=== PATIENT | female | born 1960 | race Caucasian/White ===

== ENCOUNTER 2023-10-18 14:13 | Outpatient (REF) | payer MEDICARE, SELFPAY ==
--- NOTE | ~2023-10-18 | MR_ITS ---
EXAMINATION: MR BRAIN WITHOUT CONTRAST CLINICAL INFORMATION: 63-year-old with cervical dystonia, spastic torticollis. Self-reported head shakes/tremors. COMPARISON: None available. TECHNIQUE: MRI of the brain was obtained using routine sequences without contrast. FINDINGS: BRAIN VOLUME: Within normal limits within the limitations of qualitative assessment. 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 BRAIN AND MENINGES: DWI sequence demonstrates no restricted diffusion to suggest acute or subacute cerebral ischemia. Mild, scattered very small foci of FLAIR/T2 signal hyperintensity in the subcortical white matter of both cerebral hemispheres in the frontal and parietal lobes but with a predominantly frontal lobe distribution, which are nonspecific findings. Otherwise the brain parenchyma is normal in morphology and signal intensity. Gradient refocused imaging demonstrates no abnormal susceptibility-weighted signal loss to suggest hemorrhage, hemosiderin staining or abnormal mineralization. No extra-axial fluid collection, space-occupying process or mass effect is identified. The allen-white matter differentiation is maintained. VENTRICLES AND SUBARACHNOID SPACES: The ventricular system and subarachnoid spaces are within normal range; there is no hydrocephalus. ORBITAL STRUCTURES: The visualized orbital structures are grossly unremarkable within the limitations of the study. VASCULAR: Signal voids are noted in the visualized major intracranial vessels. OSSEOUS STRUCTURES, SINUSES/MASTOIDS, EXTRACRANIAL SOFT TISSUES: Osseous marrow signal intensity is within normal limits. There is pansinus mucosal inflammatory change, most prominently seen in the maxillary and ethmoid sinuses bilaterally. Correlate clinically. MR/MR head/brain wo con IMPRESSION: 1. Scattered nonspecific subcortical white matter T2 hyperintensities in the cerebral hemispheres bilaterally. 2. No acute intracranial process. No evidence for infarction, hemorrhage, extra-axial fluid collection, space-occupying process, mass effect or hydrocephalus. 3. Pansinus mucosal inflammatory changes. 4. 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
== END 2023-10-18 14:14 | disposition home or self-care (01) ==
LOC: HO.MRI 14:13
PROVIDERS: PCP Family Medicine; Visit Provider Psychiatry & Neurology Neurology
DX: G24.3 Spasmodic torticollis (principal)
CPT/HCPCS: 70551

== ENCOUNTER 2025-02-12 10:16 | Outpatient (AMB) | payer MEDICARE, SELFPAY ==
--- NOTE | 2025-02-12 10:31 | A.OFFPC_ITS ---
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 Need Rosuvastatin refilled. 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: No Allergies No Known Allergies Allergy (Verified 02/12/25 10:36) Medication List - Last Reconciled 02/12/25 by Ivonne Middleton PA-C ascorbate calcium (vitamin C) 500 mg PO DAILY cholecalciferol (vitamin D3) 25 mcg PO DAILY [fish oil 1200 PO] [glucasamine chondroitin PO] rosuvastatin 10 mg PO DAILY [tumeric curcumin 1500 PO] zinc gluconate (Zinc-50) PO Tobacco use date assessed: 02/12/25 Fall risk assessment: No Falls in past year Last assessed Fall Risk: 02/12/25 Dental Screening Dental Screen Date: 02/12/25 Did you have a dental visit in the last 12 months?: Yes Did you have a dental problem in the last 6 months where you did not have access to dental care?: No Was dental information given to patient?: Patient has dentist 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 She is transferring from [facility]. She has a significant past medical history of Bilateral CTS, PMR, former smoker, and hyperlipidemia. She states she has had a cough since 12/29. She states it started with cold like sx. She states that she is overall better in the cough is becoming less noticeable. It feels like at times that she has not irritation and has to keep coughing. She states that it went around her whole office. She denies any wheezing or shortness on breath. No fever, chills, sinus pain or pressure. No difficulty swallowing. No history of asthma or COPD. She is a former smoker. MSK: has bilateral cts, had emgs and cortisone injections. She states that after cortisone injections she developed PMR. She uses wrist braces and ibuprofen. 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 quit in 2013, 1 ppd x 51 years. no fam hx of lung ca PFSH Surgical History (Updated 02/12/25 @ 11:13 by Ivonne Middleton PA-C) H/O tubal ligation History of hip surgery Family History (Updated 02/12/25 @ 10:54 by Samantha Mccray CMA) Mother Bladder cancer Hyperlipidemia HTN (hypertension) Diabetes Father CAD (coronary artery disease) HTN (hypertension) Hyperlipidemia Prostate cancer Paternal Grandmother Cancer of ovary Sister Thyroid disease Schizophrenia Asthma Other FH: mental illness Social History (System 11/05/20 @ 13:44 by Shira Eid) Housing: House Alcohol intake: current Patient Tobacco Use Status: Former Tobacco user e-Cigarette/Vaping Use: Never Used Second Hand Smoke Exposure: No service: No Current occupational status: employed 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 1. Little interest or pleasure in doing things: not at all 2. Feeling down, depressed, or hopeless: not at all 3. Trouble falling or staying asleep, or sleeping too much: not at all 4. Feeling tired or having little energy: not at all 5. Poor appetite or overeating: not at all 6. Feeling bad about yourself - or that you are a failure or have let yourself or your family down: not at all 7. Trouble concentrating on things, such as reading the newspaper or watching television: not at all 8. Moving or speaking so slowly that other people could have noticed. Or the opposite - being so fidgety or restless that you have been moving around a lot more than usual: not at all 9. Thoughts that you would be better off or of hurting yourself in some way: not at all Total score: 0 Depression Screening Interpretation: Negative Depression Screening Done: Yes 24213 - PHQ-9 Billing: Yes Source: Developed by Drs. Gerson Treviño, Josie Barroso, Jorge Yi and colleagues, with an educational castillo from [employer]. Thrive Questionnaire Date Thrive assessed: 02/09/25 I am a: Patient What is your living situation today?: I have a steady place to live Within the past 12 months, did the food you bought not last and you didn't have the money to get more?: Never true Within the past 12 months, did you worry whether your food would run out before you got money to buy more?: Never true Do you have trouble paying for medicines?: No Do you have trouble getting transportation to medical appointments?: No Do you have trouble paying your heating and electricity bill?: No Do you have trouble taking care of your child, family member or friend?: No Do you have trouble with day-to-day activities such as bathing, preparing meals, shopping, managing finances, etc.?: No Are you currently unemployed and looking for a job?: No Are you interested in more education?: No Please select the resources that you would like help with: None Currently or been in a relationship where the following occur: No concerns reported THRIVE Score: 0 AUDIT C Alcohol Use Questionnaire (AUDIT-C) 1. How often do you have a drink containing alcohol?: 2-3 times a week 2. How many drinks containing alcohol do you have on a typical day when you are drinking?: 1 or 2 3. How often do you have six or more drinks on one occasion?: Never Total Score: 3 MARLEY-7 AMB Questionnaire MARLEY-7 Date MARLEY - 7 assessed: 02/12/25 Feeling nervous, anxious, or on edge: 0 = Not at all Not being able to stop or control worryin = Not at all Worrying too much about different things: 0 = Not at all Trouble relaxin = Not at all Being so restless that it is hard to sit still: 0 = Not at all Becoming easily annoyed or irritable: 0 = Not at all Feeling afraid as if something awful might happen: 0 = Not at all Total MARLEY-7 score (0-4 normal; 5-9 mild; 10-14 moderate; 15-21 severe): 0 Source: Developed by Drs. Gerson Treviño, Josie Barroso, Jorge Yi and colleagues, with an educational castillo from [employer]. MARLEY-7 Assessment Billing MARLEY-7 Assessment Tool: MARLEY-7 Assessment 51292 Physical exam (Primary Care) Vital Signs: Last Vital Signs Temp 98.6 F 02/12/25 10:39 Pulse 73 02/12/25 10:39 Resp 12 02/12/25 10:39 BP 126/88 02/12/25 10:39 Pulse Ox 97 02/12/25 10:39 Oxygen Delivery Method Room Air 02/12/25 10:39 BMI result Body Mass Index 26.1 Tobacco/Smoking Status: Tobacco use Status Tobacco use date assessed 02/12/25 02/12/25 10:54 Patient Tobacco Use Status Former Tobacco user (stopped 02/12/25 10:54 2012 ) e-Cigarette/Vaping Use Never Used 02/12/25 10:54 PHQ-9: PHQ-9 Score PHQ-9: Total score 0 02/12/25 10:54 Depression Screening Interpretation: Negative Thrive Assessment: Date of Thrive Assessment Date Thrive assessed 02/09/25 02/12/25 10:31 Currently or been in a relationship where the following occur: No concerns reported Const Orientation/consciousness: patient oriented x3 HENMT Ears: hearing grossly normal bilaterally Neck Thyroid: Thyroid normal Lymphatic: no lymphadenopathy noted Resp Auscultation: clear to auscultation bilaterally Cardio Rate: regular rate Rhythm: regular rhythm Heart sounds: S1 normal heart sound present and S2 normal heart sound present GI Inspection: Yes normal to inspection Palpation (GI): Soft to palpation and Other GI palpation findings present (nontender, no cva tenderness) Auscultation: normoactive bowel sounds Rectal Exam - Female: deferred Skin General skin exam: no rashes or lesions noted Neuro General: patient oriented x3, gait normal and no focal motor deficits Coding Level of Care Code New Pt Level 3 (87527) Complex EM visit Add On G2211 Diagnoses Dyslipidemia E78.5 Former smoker Z87.891 Bilateral carpal tunnel syndrome G56.03 Additional Codes MARLEY-7 Assessment Billing - MARLEY-7 Assessment Tool: MARLEY-7 Assessment 63872 ([id number]) PHQ-9 - 91852 - PHQ-9 Billing: Yes ([id number]) Assessment & Plan Assessment & Plan (1) Dyslipidemia: Code(s): E78.5 - Hyperlipidemia, unspecified Category: Medical Plan: Refilled medication today. Labs ordered We will follow up pending test results (2) Former smoker: Code(s): Z87.891 - Personal history of nicotine dependence Category: Social Hx Plan: Currently following at [facility]. We will let me know if she wants to switch (3) Bilateral carpal tunnel syndrome: Code(s): G56.03 - Carpal tunnel syndrome, bilateral upper limbs Category: Medical Plan: Stable with braces and ibuprofen as needed. Orders: Orders MM diagnostic mammo BI Today Z12.39 - Encounter for other screening for malignant neoplasm of breast XR DEXA axial skeleton Today N95.9 - Unspecified menopausal and perimenopausal disorder, Z87.891 - Personal history of nicotine dependence Comprehensive [place]. Panel Fast Today E78.5 - Hyperlipidemia, unspecified, Z87.891 - Personal history of nicotine dependence Complete Blood Count Auto Diff Today E78.5 - Hyperlipidemia, unspecified, Z87.891 - Personal history of nicotine dependence UA CC w/rflx Micro + Cult Today E78.5 - Hyperlipidemia, unspecified, Z13.220 - Encounter for screening for lipoid disorders, Z87.891 - Personal history of nicotine dependence Lipid Panel Today E78.5 - Hyperlipidemia, unspecified, Z87.891 - Personal history of nicotine dependence TSH reflex Free T4 Today E78.5 - Hyperlipidemia, unspecified, Z87.891 - Personal history of nicotine dependence Microalbumin, Random (w Creat) Today E78.5 - Hyperlipidemia, unspecified, Z87.891 - Personal history of nicotine dependence Medications: New rosuvastatin 10 mg PO DAILY 90 tabs 3RF
[2025-02-12 10:39] VITALS: BP 126/88; PULSE 73; RESP 12; TEMP 37; O2SAT 97; BMI 26.1
== END 2025-02-12 11:27 | disposition home or self-care (01) ==
LOC: HO.HMCFM 10:17
PROVIDERS: PCP Physician Assistant; Visit Provider Physician Assistant
DX: E78.5 Hyperlipidemia, unspecified (principal); Z87.891 Personal history of nicotine dependence; G56.03 Carpal tunnel syndrome, bilateral upper limbs

== ENCOUNTER → 2025-02-12 10:16 | Outpatient (BNVA) | payer MEDICARE, SELFPAY | PROVIDERS: PCP Physician Assistant; Visit Provider Physician Assistant | DX: E78.5 Hyperlipidemia, unspecified (principal); G56.03 Carpal tunnel syndrome, bilateral upper limbs; Z87.891 Personal history of nicotine dependence | CPT/HCPCS: 96127; 99202 ==

== ENCOUNTER 2025-04-30 08:31 | Outpatient (REF) | payer MEDICARE, SELFPAY ==
--- NOTE | ~2025-04-30 | MM_ITS ---
EXAMINATION: DXA BONE DENSITY AXIAL HISTORY: N95.9 - Unspecified menopausal and perimenopausal disorder TECHNIQUE: [employer] Dual energy absorptiometry (DEXA) of the lumbar spine, total left hip, and femoral neck was performed. COMPARISON: There are no prior studies for comparison. FINDINGS: The bone mineral density of the lumbar spine is 1.430 g/cm2, corresponding to a T-score of 2.1, and a Z-score of 3.7. This is indicative of normal bone mineral density. The bone mineral density of the left total hip is 1.118 g/cm2, corresponding to a T-score of 0.9, and a Z-score of 2.2. This is indicative of normal bone mineral density. The bone mineral density of the left femoral neck is 0.911 g/cm2, corresponding to a T-score of -0.9, and a Z-score of 0.6. This is indicative of normal bone mineral density. FRACTURE RISK: The FRAX index suggests a risk of major osteoporotic fracture of 12.3%, and of hip fracture 1.1%. MM/XR DEXA axial skeleton IMPRESSION: Based on bone mineral density, and according to World Health Organization (WHO) criteria, the diagnosis is consistent with normal bone mineral density. Statistically, 68% of repeat scans fall within 1 SD (+/- 0.010 g/cm2 for AP spine L1-L4) and 1 SD (+/- 0.012 g/cm2 for femur total) FRAX is a trademark of the [employer] [place] [facility] Met[employer], a World Health Organization (WHO) Collaborating Center. Electronically signed by: Gerson Brooks MD 04/30/2025 09:37 AM EDT
== END 2025-04-30 08:32 | disposition home or self-care (01) ==
LOC: HO.MAMMO 08:31
PROVIDERS: PCP Physician Assistant; Visit Provider Physician Assistant
DX: Z13.820 Encounter for screening for osteoporosis (principal); Z78.0 Asymptomatic menopausal state; Z87.891 Personal history of nicotine dependence
CPT/HCPCS: 77080

== ENCOUNTER → 2025-04-30 08:45 | Outpatient (BNV) | payer MEDICARE, SELFPAY | PROVIDERS: PCP Physician Assistant; Visit Provider Radiology Diagnostic Radiology | DX: E28.39 Other primary ovarian failure (principal) | CPT/HCPCS: 77080 ==

== ENCOUNTER 2025-06-04 08:33 | Outpatient (REF) | payer MEDICARE, SELFPAY ==
[2025-06-04 11:14] LABS: MANUAL DIFF FLAG NO
[2025-06-04 11:24] LABS: Hematocrit 40.6 % (37.0-47.0); Hemoglobin 13.1 g/dl (12.0-16.0); Imm Gran Abs Auto 0.02 X10*3/uL (0.00-0.03); Imm Gran Pct Auto 0.3 % (0.0-0.4); Lymphocytes Absolute Auto 1.8 X10*3/uL (1.2-4.9); Mean Corpuscular HGB Conc 32.3 g/dl (31.0-35.0); Mean Corpuscular Hemoglobin 28.9 pg (27.0-33.0); Mean Corpuscular Volume 89.6 fL (80.0-98.0); NRBC Abs Auto 0.000 X10*3/uL (0.0-0.012); NRBC Pct Auto 0.0 /100WBC (0.0-0.2); Platelet Count 260 X10*3/uL (160-400); Red Blood Count 4.53 X10*6/uL (4.20-5.50); White Blood Count 6.9 X10*3/uL (4.8-10.8)
[2025-06-04 11:36] LABS: Appearance Urine Clear; Glucose Urine UA Negative (Negative); PH 5.5 (5.0-9.0); Specific Gravity - Urine 1.020 (1.005-1.025); UMIC TRIGGER UACC YES
[2025-06-04 12:02] LABS: Alanine Aminotransferase 26 U/L (0-31); Albumin Level 4.4 g/dL (3.5-5.0); Alkaline Phosphatase 75 U/L (39-117); Anion Gap 7 (12-20); Aspartate Amino Transferase 27 U/L (5-31); Blood Urea Nitrogen 17 mg/dL (9-16); Calcium 9.2 mg/dL (8.4-10.2); Carbon Dioxide 29 mmol/L (22-29); Chloride 110 mmol/L (96-108); Cholesterol 153 mg/dL (<200); Estimated Glomerular Filt Rate > 60; HDL Cholesterol 68 mg/dL (>40); Potassium 4.1 mmol/L (3.3-5.1); Sodium 142 mmol/L (135-145); Total Protein 6.6 g/dL (6.5-8.0); Triglycerides 96 mg/dL (<150)
== END 2025-06-04 08:34 | disposition home or self-care (01) ==
LOC: HO.WFDLDS 08:33
PROVIDERS: Visit Provider Physician Assistant
DX: E78.5 Hyperlipidemia, unspecified (principal); Z87.891 Personal history of nicotine dependence
CPT/HCPCS: 36415; 80053; 80061; 81001; 82043; 82570; 84443; 85025

== ENCOUNTER 2025-07-02 13:51 | Outpatient (AMB) | payer MEDICARE, SELFPAY ==
--- NOTE | 2025-07-02 14:02 | A.OFFVIS_ITS ---
Intake Vital Signs 07/02/25 14:09 Height 5 ft 3.5 in Weight 153 lb BMI 26.7 BP 136/74 Blood Pressure Location Lt brachial Position Sitting Respiration 14 Pulse 70 Pulse Source Pulse Oximeter Temp 98 F Temp Source Oral Pulse Oximetry (%) 98 Oxygen Delivery Method Room Air Intake Visit Reasons: medicare wellnesss Intake Note: Medical wellness visit Research Methodologist Required: No Allergies No Known Allergies Allergy (Verified 07/02/25 14:04) Medication List - Last Reconciled 07/02/25 by Ivonne Middleton PA-C ascorbate calcium (vitamin C) 500 mg PO DAILY cholecalciferol (vitamin D3) 25 mcg PO DAILY [fish oil 1200 PO] [glucasamine chondroitin PO] rosuvastatin 10 mg PO DAILY [tumeric curcumin 1500 PO] zinc gluconate (Zinc-50) PO HPI medicare wellnesss HPI Details Patient is a 65-year-old female who presents today for a Medicare wellness visit. She has a significant past medical history of Bilateral CTS, PMR, former smoker, and hyperlipidemia. MSK: has bilateral cts, had emgs and cortisone injections. She states that after cortisone injections she developed PMR. She uses wrist braces and ibuprofen. Derm: On physical exam noted to have a petechial looking rash. She says that she is not sure how long that has been there but she does admit that it looks a new when her legs do not normally look like this. She does bruise somewhat easily and this has been going on for as long as she really thinks about it. No significant change in this. She denies any bleeding gums, blood in stool or urine that she is aware of she does not feel weak or tired. No swollen lymph nodes that she is aware of. She denies any recent vaccines or illness. She does have an upcoming appointment with Dermatology and plans to review this with them as well. 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 quit in 2012, 1 ppd x 51 years. no fam hx of lung ca PFSH Surgical History H/O tubal ligation History of hip surgery Family History Mother Bladder cancer Hyperlipidemia HTN (hypertension) Diabetes Father CAD (coronary artery disease) HTN (hypertension) Hyperlipidemia Prostate cancer Paternal Grandmother Cancer of ovary Sister Thyroid disease Schizophrenia Asthma Other FH: mental illness Social History (Updated 07/02/25 @ 14:20 by Samantha Mccray CMA) Housing: House Alcohol intake: current Patient Tobacco Use Status: Former Tobacco user e-Cigarette/Vaping Use: Never Used Second Hand Smoke Exposure: No service: No Current occupational status: employed 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 [employer] Current occupational exposures/hazards: No Cognitive needs: No Hearing needs: No Vision needs: Yes (reading glasses ) Questionnaire Medicare Wellness Checkup [age] 65-67 What gender do you identify with?: female During the past 4 weeks, how much have you been bothered by emotional problems such as feeling anxious, depressed, irritable, sad or downhearted, and blue?: not at all During the past 4 weeks, has your physical & emotional health limited your social activities with family, friends, neighbors, or groups?: not at all During the past 4 weeks, how much bodily pain have you generally had?: mild pain During the past 4 weeks, was someone available to help you if you needed & wanted help?: yes, as much as I wanted During the past 4 weeks, what was the hardest physical activity you could do for at least 2 minutes?: heavy Can you get to places out of walking distance without help? (For eg., can you travel alone on buses, taxis or drive your car?): Yes Can you go shopping for groceries or clothes without someone's help?: Yes Can you prepare your own meals?: Yes Can you do your housework without help?: Yes Because of any health problems, do you need the help of another person with your personal care needs such as eating, bathing, dressing or getting around the house?: No Can you handle your own money without help?: Yes During the past 4 weeks, how would you rate your health in general?: very good During the past 4 weeks how have things been going for you?: pretty well Are you having difficulties driving your car?: no Do you always fasten your seat belt when you are in a car?: yes, usually During past 4 weeks, have you been bothered by the following: never: Falling or dizzy when standing up, Sexual problems?, Trouble eating well?, Teeth or denture problems?, Problems using the telephone? and Tiredness or fatigue? Have you fallen 2 or more times in the past year?: No Are you afraid of falling?: No Are you a smoker?: no During the past 4 weeks, how many drinks of wine, beer, or other alcoholic beverages did you have?: 2-5 drinks per week Do you exercise for about 20 minutes 3 or more times a week?: yes, most of the time Have you been given information to help with the following?: yes: Hazards in your house that might hurt you? and yes: Keeping track of your medications? How often do you have trouble taking medicines the way you have been told to take them?: I always take medicine as prescribed How confident are you that you can control & manage most of your health problems?: very confident What is your race?: White Mini Mental State Exam (MMSE) Orientation What is the (year) (season) (date) (day) (month)?: year, season, date, day and month Where are we (state) (county) (town or city) (hospital) (floor)?: state, county, town or city, hospital/clinic and floor Registration Name of 3 unrelated objects clearly and slowly, then ask patient to repeat all 3 of them. (1st repeat determines score. Make sure they can repeat all three): object 3 Attention & Calculation (CHOOSE ONE) Spell WORLD backwards (DLROW): 5 letters Recall Ask patient to repeat the 3 items from question #3.: object 3 Language Show patient a wristwatch & ask what it is. Repeat for pencil.: watch Ask the patient to repeat the phrase 'No ifs, ands, or buts' after you.: correct Ask the patient to 'take a piece of paper with their right hand' 'fold paper in half' 'place paper on floor': take paper in right hand Print the sentence 'CLOSE YOUR EYES' on a piece. If patient actually closes eyes then score.: followed written direction Give patient a blank piece of paper & ask to write a sentence. Score if it contains a noun & verb.: sentence contains subject and verb Score Score: 22 Activity of Daily Living Bathing - sponge bath, tub bath or shower: receives no assistance (gets in/out by self, if usual bathing means Dressing - getting clothes from closets & drawers, including inner/outer garments & fasteners.: gets clothes & gets completely dressed without help Toileting - going to the 'toilet room' for urine/bowel elimination & cleaning self/arranging clothes: goes to toilet room, cleans self, arranges clothes without help Transfer: moves in & out of bed and chair without help (may use support object) Continence: controls urination/bowel movements completely by self Feeding: feeds self without help Total Score: 0 Information obtained from: patient Using telephone: independent Traveling: independent Shopping: independent Preparing meals: independent Housework: independent Taking medicine: independent Managing money: independent Physical Exam Vital Signs: Last Vital Signs Temp 98 F 07/02/25 14:09 Pulse 70 07/02/25 14:09 Resp 14 07/02/25 14:09 BP 136/74 07/02/25 14:09 Pulse Ox 98 07/02/25 14:09 Oxygen Delivery Method Room Air 07/02/25 14:09 BMI result Body Mass Index 26.7 Const Orientation/consciousness: patient oriented x3 HEENT Ears: hearing grossly normal bilaterally General nose exam: No nasal polyps present Face and sinus: Yes sinuses nontender Mouth: Normal oral and palatal mucosa present Eyes Pupils: Equal, round and reactive pupils present EOM: EOMs intact bilaterally Neck Neck: Yes full ROM and Yes no lymphadenopathy Thyroid: Thyroid normal Lymphatic: no lymphadenopathy noted Chest Chest palpation & inspection: normal inspection of the chest Resp Auscultation: clear to auscultation bilaterally Cardio Rate: regular rate Rhythm: regular rhythm Heart sounds: S1 normal heart sound present and S2 normal heart sound present Peripheral pulses: Peripheral pulses 2+ throughout GI Inspection: Yes normal to inspection Palpation (GI): Soft to palpation and Other GI palpation findings present (nontender, no cva tenderness) Auscultation: normoactive bowel sounds Rectal Exam - Female: deferred General: Yes no CVA tenderness Back/Spine/Pelvis Back: no CVA tenderness Skin Other: On her lower extremities she is noted to have flat, small, erythematous, nontender, nonblanching lesions noted throughout consistent with a petechial rash. Neuro General: patient oriented x3, gait normal and no focal motor deficits Cranial nerves: Yes Equal, round and reactive pupils present Motor exam (neuro): 5/5 motor strength present throughout Sensory Exam: double simultaneous stimulation for sensation normal Coordination: [id number] test normal and Romberg test negative Extrem General: Yes normal to inspection and Yes full ROM Psych Affect: normal affect Attitude: cooperative Thought process: Normal thought process present Thought content: Normal thought content present Insight: Good insight present (Psych) Judgement: Good judgement present (Psych) Office Procedures EKG Details: EKG today in the office is normal sinus rhythm at a rate of 74 beats per minute with PACs. No prior study to compare. EKG interpreted myself and and Dr. George [id number], Complete Results Reviewed Results Reviewed: Laboratory Tests 06/04/25 08:35 WBC 6.9 RBC 4.53 Hgb 13.1 Hct 40.6 Plt Count 260 Sodium 142 Potassium 4.1 Chloride 110 H Carbon Dioxide 29 Anion Gap 7 L BUN 17 H Creatinine 0.71 Estimated GFR > 60 Fasting Glucose 82 Calcium 9.2 Total Bilirubin 0.4 AST 27 ALT 26 Alkaline Phosphatase 75 Total Protein 6.6 Albumin 4.4 Triglycerides 96 Cholesterol 153 LDL Cholesterol, Calc 66 HDL Cholesterol 68 TSH 0.94 Assessment & Plan Assessment & Plan (1) Medicare annual wellness visit, initial: Code(s): Z00.00 - Encounter for general adult medical examination without abnormal findings Plan: Health maintenance reviewed Labs ordered We will follow up pending test results Mammogram ordered to be done at [facility] [place] (2) Former smoker: Code(s): Z87.891 - Personal history of nicotine dependence Plan: Reports being up-to-date on low-dose chest CT (3) Easy bruising: Code(s): R23.3 - Spontaneous ecchymoses Plan: Labs ordered Discussed referral possibly to Heme-Onc but going to hold off on this until after labs and visit with Dermatology per patient (4) Petechial rash: Code(s): R23.3 - Spontaneous ecchymoses Plan: As above Orders: Orders MM screening mammo BI 07/02/25 Z12.31 - Encounter for screening mammogram for malignant neoplasm of breast Lipid Panel 07/02/25 E78.5 - Hyperlipidemia, unspecified, R23.3 - Spontaneous ecchymoses, Z00.00 - Encounter for general adult medical examination without abnormal findings, Z87.891 - Personal history of nicotine dependence TSH reflex Free T4 07/02/25 E78.5 - Hyperlipidemia, unspecified, R23.3 - Spont aneous ecchymoses, Z00.00 - Encounter for general adult medical examination without abnormal findings, Z87.891 - Personal history of nicotine dependence UA CC w/rflx Micro + Cult 07/02/25 E78.5 - Hyperlipidemia, unspecified, R23.3 - Spontaneous ecchymoses, R30.0 - Dysuria, Z00.00 - Encounter for general adult medical examination without abnormal findings, Z87.891 - Personal history of nicotine dependence Microalbumin, Random (w Creat) 07/02/25 E78.5 - Hyperlipidemia, unspecified, R23.3 - Spontaneous ecchymoses, Z00.00 - Encounter for general adult medical examination without abnormal findings, Z87.891 - Personal history of nicotine dependence Prothrombin Time INR 07/02/25 R23.3 - Spontaneous ecchymoses ANCA Vasculitides 07/02/25 E78.5 - Hyperlipidemia, unspecified, R23.3 - Spontaneous ecchymoses, Z00.00 - Encounter for general adult medical examination without abnormal findings, Z87.891 - Personal history of nicotine dependence Erythrocyte Sedimentation Rate 07/02/25 E78.5 - Hyperlipidemia, unspecified, R23.3 - Spontaneous ecchymoses, Z00.00 - Encounter for general adult medical examination without abnormal findings, Z87.891 - Personal history of nicotine dependence Complete Blood Count Auto Diff 07/02/25 E78.5 - Hyperlipidemia, unspecified, R23.3 - Spontaneous ecchymoses, Z00.00 - Encounter for general adult medical examination without abnormal findings, Z87.891 - Personal history of nicotine dependence Coding Level of Care Code Medicare First (G0438) Est Pt Level 4 (13306) Diagnoses Medicare annual wellness visit, initial Z00.00 Former smoker Z87.891 Easy bruising R23.3 Petechial rash R23.3 CPT Codes Advance Care Planning - Time spent: 1-15 minutes, on File ([id number]) EKG - CPT: [id number], Complete ([id number]) Advance Care Planning Advance Care Planning discussion: Exists, not on file Forms completed: Health Care Proxy, MOLST and Living will Time spent: 1-15 minutes, on File
[2025-07-02 14:09] VITALS: BP 136/74; PULSE 70; RESP 14; TEMP 36.6; O2SAT 98; BMI 26.7
== END 2025-07-02 14:43 | disposition home or self-care (01) ==
LOC: HO.HMCFM 13:52
PROVIDERS: PCP Physician Assistant; Visit Provider Physician Assistant
DX: Z00.00 Encounter for general adult medical examination without abnormal findings (principal); R23.3 Spontaneous ecchymoses; Z87.891 Personal history of nicotine dependence

== ENCOUNTER 2025-07-02 13:51 | Outpatient (REF) | payer MEDICARE, SELFPAY ==
[2025-07-02 18:15] LABS: Appearance Urine Clear; Glucose Urine UA Negative (Negative); PH 5.5 (5.0-9.0); Specific Gravity - Urine 1.020 (1.005-1.025)
[2025-07-02 18:36] LABS: MANUAL DIFF FLAG NO
[2025-07-02 18:53] LABS: INTERNATIONAL NORM RATIO 0.9 (0.9-1.1); Prothrombin Time 11.4 SEC (11.2-13.5)
[2025-07-02 19:12] LABS: Microalbum/Creatinine Ratio Ur 4.3 ug/mg cr (<30)
[2025-07-02 19:13] LABS: Cholesterol 157 mg/dL (<200); HDL Cholesterol 81 mg/dL (>40); Triglycerides 72 mg/dL (<150)
[2025-07-02 19:20] LABS: Hematocrit 40.2 % (37.0-47.0); Hemoglobin 13.3 g/dl (12.0-16.0); Imm Gran Abs Auto 0.02 X10*3/uL (0.00-0.03); Imm Gran Pct Auto 0.3 % (0.0-0.4); Lymphocytes Absolute Auto 2.3 X10*3/uL (1.2-4.9); Mean Corpuscular HGB Conc 33.1 g/dl (31.0-35.0); Mean Corpuscular Hemoglobin 28.9 pg (27.0-33.0); Mean Corpuscular Volume 87.2 fL (80.0-98.0); NRBC Abs Auto 0.000 X10*3/uL (0.0-0.012); NRBC Pct Auto 0.0 /100WBC (0.0-0.2); Platelet Count 256 X10*3/uL (160-400); Red Blood Count 4.61 X10*6/uL (4.20-5.50); White Blood Count 7.4 X10*3/uL (4.8-10.8)
[2025-07-02 19:40] LABS: Erythrocyte Sedimentation Rate 5 MM/HR (0-20)
== END 2025-07-02 13:52 | disposition home or self-care (01) ==
LOC: HO.WFDLDS 13:51
PROVIDERS: PCP Physician Assistant; Visit Provider Physician Assistant
DX: Z00.00 Encounter for general adult medical examination without abnormal findings (principal); E78.5 Hyperlipidemia, unspecified; R23.3 Spontaneous ecchymoses; R30.0 Dysuria; Z87.891 Personal history of nicotine dependence; Z13.220 Encounter for screening for lipoid disorders; Z01.84 Encounter for antibody response examination; Z12.31 Encounter for screening mammogram for malignant neoplasm of breast
CPT/HCPCS: 36415; 80061; 81003; 82043; 82570; 84443; 85025; 85610; 85652; 86021